=== PATIENT | male | born 1970 | race Caucasian/White ===

== ENCOUNTER 2019-12-23 16:38 | Observation (INO) ==
[2019-12-23 17:23] LABS: Basophils # (auto) 0.03 K/uL (0-0.2); Basophils % (auto) 0.6 %; Eosinophils # (auto) 0.11 K/uL (0-0.5); Eosinophils % (auto) 2.1 %; Hematocrit (blood only) 42.7 % (42-52); Hemoglobin 14.7 g/dL (14.0-18.0); Immature Granulocytes # (auto) 0.01 K/uL (0.00-0.02); Immature Granulocytes % (auto) 0.2 %; Lymphocytes # (auto) 1.84 K/uL (1.2-3.4); Lymphocytes % (auto) 35.3 %; Mean Corpuscular Hemoglobin 30.2 pg (25-34); Mean Corpuscular Hgb Conc 34.4 g/dL (32-36); Mean Corpuscular Volume 87.7 fL (80-100); Mean Platelet Volume 9.8 fL (7.4-10.4); Monocytes # (auto) 0.63 K/uL (0.11-0.59); Monocytes % (auto) 12.1 %; Neutrophils # (auto) 2.59 K/uL (1.4-6.5); Neutrophils % (auto) 49.7 %; Platelet Count 284 K/uL (130-400); RDW Coefficient of Variation 12.2 % (11.5-14.5); RDW Standard Deviation 38.8 fL (36.4-46.3); Red Blood Count 4.87 M/uL (4.7-6.1); White Blood Count 5.21 K/uL (4.8-10.8)
[2019-12-23] MEDS ORDERED: ASPIRIN CHEW 324 MG PO STA (17:24)
[2019-12-23 17:33] LABS: Partial Thromboplastin Ratio 1.1; Partial Thromboplastin Time 29.3 Seconds (21.0-31.0); Prothrombin Time 10.8 Seconds (9.0-12.0)
[2019-12-23 17:39] LABS: Alanine Aminotransferase 39 U/L (12-78); Albumin Level 4.2 gm/dl (3.4-5.0); Aspartate Aminotransferase 20 U/L (15-37); Blood Urea Nitrogen 14 mg/dl (7-18); Calcium 8.9 mg/dl (8.5-10.1); Carbon Dioxide 32 mmol/L (21-32); Chloride 103 mmol/L (98-107); Creatinine Clr Calc Pharmacy 72.3 ml/min; Est GFR (African American) 86.7; Est GFR (Non-African American) 74.8; Glucose 130 mg/dl (70-99); Lipase 346 U/L (73-393); Potassium 3.2 mmol/L (3.5-5.1); Sodium 140 mmol/L (136-145)
[2019-12-23 17:44] LABS: Albumin Globulin Ratio 1.2 (0.9-2); Alkaline Phosphatase 82 U/L (45-117); Bilirubin,Total 0.3 mg/dl (0.2-1); Globulin 3.4 gm/dl (2.5-4.0); Total Protein 7.6 gm/dl (6.4-8.2); Troponin I < 0.015 ng/ml (0-0.045)
[2019-12-23] MEDS ORDERED: NITROGLYCERIN SL 0.4 MG/TAB TAB ONE (17:47)
[2019-12-23] MEDS ORDERED: SODIUM CHLORIDE 0.9% 1000ML 1,000 ML IV ONE (17:48)
[2019-12-23] MEDS ORDERED: NITROGLYCERIN SL 0.4 MG/TAB TAB SL STA (17:48)
--- NOTE | 2019-12-23 17:51 | XRay Report ---
XR chest 1V portable CLINICAL HISTORY: Atypical chest pain COMPARISON STUDY: No previous studies for comparison. FINDINGS: The heart is the upper limits of normal in size. There is mild aortic tortuosity/ectasia. T here is no failure. There is no lobar consolidation. There are minimal increased basilar markings lik dariela atelectatic. No pleural effusions are visualized.[ IMPRESSION: Minor basilar opacities, likely atelectatic. No evidence of lobar consolidation. No evide nce of failure. ACT 112: Negative or not required by law. Electronically signed by: Delvis Sahu M.D. 12/23/2019 5:50 PM
[2019-12-23 18:22] LABS: D Dimer 210 ug/L FEU (0-500)
--- NOTE | 2019-12-23 19:04 | Emergency Department Note ---
History of Present Illness General Chief Complaint: Chest Pain Stated Complaint: CHEST PAIN Time Seen by Provider: 12/23/19 17:23 History of Present Illness Provider Complaint: chest pain Onset (ago): hour(s) 1 Duration: constant Onset: during rest Pain Location: substernal Pain Radiation: none Severity: moderate Maximum Pain Intensity: 8 Current Pain Intensity: 6 Quality: + heaviness Relieved By: + nothing Exacerbated By: + nothing Context: no recent illness, no recent surgery, no recent travel, no trauma/injury and no history of DVT/PE Associated symptoms: no nausea, no vomiting, no diaphoresis, no dyspnea, no syncope, no palpitations, no fever, no cough and no leg swelling Patient states he is scheduled to get an ultrasound of his gallbladder on Wednesday and is asking if we could complete that here in the emergency department today. Home Medications Home Medications Medication Instructions Recorded Confirmed Type hydrochlorothiazide 25 mg PO QAM 12/23/19 12/23/19 History levothyroxine 50 mcg PO QAM 12/23/19 12/23/19 History losartan 100 mg PO QAM 12/23/19 12/23/19 History multivitamin 1 tab PO QAM 12/23/19 12/23/19 History venlafaxine 75 mg PO PM 12/23/19 12/23/19 History Allergies Allergy/AdvReac Type Severity Reaction Status Date / Time No Known Allergies Allergy Unknown Unverified 12/23/19 18:31 Past Med/Surg History Medical History (Updated 12/23/19 @ 22:14 by Rl Chambers) Anxiety GERD (gastroesophageal reflux disease) HTN (hypertension) IBS (irritable bowel syndrome) Surgical History (Updated 12/23/19 @ 18:57 by Rl Chambers) No pertinent past surgical history Family History (Updated 12/23/19 @ 18:58 by Rl Chambers) Father Heart disease Hypertension Myocardial infarction Social History Smoking Status: Never smoker Tobacco Type: Cigarettes Second Hand Exposure: Yes; Do You Dip or Chew Tobacco: No; Tobacco Cessation Education Requested by Patient: No Hx Alcohol Use: No Hx Substance Use: Yes Last Used Substance: Hours (ago) Last Used Substance Other:: 12 hours Preferred Language: Maldivian Communication Ability: Effective [employer] Performance Professor Required: No Beliefs That Will Affect Care: None Current Living Situation: Significant Other Other Information That Helps Us Care for You: No Feels Safe at Home: Yes Assistive Devices: Glasses Review of Systems A total of 10 systems reviewed and were otherwise negative Physical Exam Vital Signs Vital Signs - 24 hr 12/23/19 16:50 12/23/19 16:53 12/23/19 17:10 Temperature 36.5 C Temperature Source Oral Pulse Rate 78 Pulse Rate [Apical] Pulse Rate from SpO2 Sensor Pulse Rhythm [Apical] Pulse Strength [Apical] Respiratory Rate 18 Respiratory Effort / Characteristics Non-Labored Spontaneous Non-Labored Spontaneous Respiratory Depth Normal Normal Respiratory Pattern Regular Blood Pressure 169/98 H Blood Pressure [Left Arm] Blood Pressure Mean 121 Blood Pressure Mean [Left Arm] Blood Pressure Position Sitting Blood Pressure Position [Left Arm] Pulse Oximetry 100 98 Oxygen Delivery Method Room Air Room Air Sepsis Recent Fever Within 48 Hours No Sepsis New/Unexplained Change in Mental Status N/A Sepsis Action Taken by Nursing No Action Required 12/23/19 17:25 12/23/19 17:27 12/23/19 17:30 Temperature Temperature Source Pulse Rate 74 72 76 Pulse Rate [Apical] 67 Pulse Rate from SpO2 Sensor 74 70 76 Pulse Rhythm [Apical] Regular Pulse Strength [Apical] Normal Respiratory Rate 15 20 22 Respiratory Effort / Characteristics Non-Labored Spontaneous Respiratory Depth Normal Respiratory Pattern Regular Blood Pressure 173/100 H 160/98 H Blood Pressure [Left Arm] 173/100 H Blood Pressure Mean 116 110 Blood Pressure Mean [Left Arm] 124 Blood Pressure Position Blood Pressure Position [Left Arm] Lying Pulse Oximetry 97 98 97 Oxygen Delivery Method Room Air Room Air Room Air Sepsis Recent Fever Within 48 Hours Sepsis New/Unexplained Change in Mental Status Sepsis Action Taken by Nursing 12/23/19 18:00 12/23/19 19:05 12/23/19 20:09 Temperature Temperature Source Pulse Rate 83 61 Pulse Rate [Apical] 70 Pulse Rate from SpO2 Sensor 83 Pulse Rhythm [Apical] Pulse Strength [Apical] Respiratory Rate 21 18 20 Respiratory Effort / Characteristics Respiratory Depth Respiratory Pattern Blood Pressure 135/91 142/87 H Blood Pressure [Left Arm] 143/87 H Blood Pressure Mean 106 106 Blood Pressure Mean [Left Arm] 105 Blood Pressure Position Blood Pressure Position [Left Arm] Pulse Oximetry 96 98 98 Oxygen Delivery Method Room Air Room Air Room Air Sepsis Recent Fever Within 48 Hours Sepsis New/Unexplained Change in Mental Status Sepsis Action Taken by Nursing Physical Exam GENERAL: He is oriented to person, place, and time. He appears well-developed and well-nourished. He does not appear distressed. HENT: Exam performed. - Head: Normocephalic and atraumatic. - Right Ear: External ear normal. No mastoid tenderness. - Left Ear: External ear normal. No mastoid tenderness. - Mouth/Throat: The oropharynx is clear and moist. No trismus in the jaw. No dental abscesses or uvula swelling. No oropharyngeal exudate or tonsillar abscesses. EYES: Conjunctivae and EOM are normal. Pupils are equal, round, and reactive to light. Right eye exhibits no discharge. Left eye exhibits no discharge. No scleral icterus. NECK: Normal range of motion. Neck supple. No JVD present. No spinous process tenderness present. No carotid bruit present. No rigidity. No tracheal deviation and normal range of motion present. No Brudzinski's sign and no Kernig's sign noted. CV: Normal rate, regular rhythm, normal heart sounds and intact distal pulses. There is no peripheral edema. Palpable radial pulses bue. PULM/CHEST: Effort normal and breath sounds normal. No respiratory distress. No stridor. He has no wheezes. He has no rales. - Chest Wall: He exhibits no tenderness. ABD: The abdomen is soft. Bowel sounds are normal. He has no distension. No mass is present. There is no tenderness. There is no rebound, no guarding, no Townsend's sign and no tenderness at McBurney's point. Rovsig negative. MUSC/SKEL: Normal range of motion. There is no peripheral edema, tenderness or deformity. LYMPH: No cervical adenopathy. NEURO: He is alert and oriented to person, place, and time. He has normal strength. No cranial nerve deficit or sensory deficit. Coordination and gait normal. GCS eye subscore is 4. GCS verbal subscore is 5. GCS motor subscore is 6. Cerebellar tests wnl. SKIN: Skin is warm and dry. He is not diaphoretic. PSYCH: He has a normal mood and affect. Behavior is normal. Judgment and thought content normal. Course Course 172: The patient was evaluated in room A10. A complete history and physical exam was performed. Cardiac monitoring: An order was placed for continuous cardiac monitoring. The monitor shows a rate of 70 with sinus rhythm 1802: Status post 1 sublingual nitro the patient's chest pain is improved to 3 out of 10. We will repeat his sublingual nitro. 1921: Vital signs stable. Labs within normal limits with exception of potassium 3.2 which will be replaced in the emergency department. Chest x-ray within normal limits. Patient reports his chest pain resolved after receiving the second sublingual nitro. Patient will be admitted to the hospitalist service for chest pain rule out ACS given his improvement of chest pain with sublingual nitro, his HPI, and a strong family history for heart disease. The patient will still have the ultrasound of his right upper quadrant that was scheduled to be done outpatient on Wednesday although it is thought that is very unlikely that the patient has any gallbladder disease as patient has no pain on palpation of the abdomen. Administered Medications Lactated Ringer's (Lr) 1,000 mls @ 60 mls/hr IV .[id number] VERA Stop: 01/22/20 21:07 Last Admin: 12/23/19 21:37 Dose: 60 mls/hr Documented by: [id number] Ioversol (Ioversol 100ml) 93 ml IV ONCE ONE Stop: 12/23/19 22:12 Last Admin: 12/23/19 22:11 Dose: 93 ml Documented by: [id number] Discontinued Medications Aspirin (Aspirin Chew 324 Mg) 324 mg PO NOW STA Stop: 12/23/19 17:25 Last Admin: 12/23/19 17:29 Dose: 324 mg Documented by: [id number] Sodium Chloride (Nss 1000ml) 1,000 mls @ 999 mls/hr IV .[id number] ONE Stop: 12/23/19 18:48 Last Infusion: 12/23/19 19:10 Dose: 0 mls/hr Documented by: [id number] Admin: 12/23/19 18:10 Dose: 999 mls/hr Documented by: [id number] Nitroglycerin (Nitroglycerin Sl 0.4 Mg/Tab Tab) Confirm Administered Dose 0.4 mg .ROUTE .STK-MED ONE Stop: 12/23/19 17:48 Last Admin: 12/23/19 17:51 Dose: Not Given Documented by: [id number] Nitroglycerin (Nitroglycerin Sl 0.4 Mg/Tab Tab) 0.4 mg SL NOW STA Stop: 12/23/19 17:49 Last Admin: 12/23/19 17:51 Dose: 0.4 mg Documented by: [id number] Potassium Chloride (Potassium Chloride 10 Meq Tabcr) 40 meq PO NOW STA Stop: 12/23/19 19:23 Last Admin: 12/23/19 20:14 Dose: 40 meq Documented by: [id number] Medical Decision Making Laboratory Data Result diagrams: 12/23/19 17:07 12/23/19 17:07 Labs: Lab Results 12/23/19 12/23/19 12/23/19 Range/Units 17:07 17:07 17:07 WBC 5.21 (4.8-10.8) K/uL RBC 4.87 (4.7-6.1) M/uL Hgb 14.7 (14.0-18.0) g/dL Hct 42.7 (42-52) % MCV 87.7 (80-100) fL MCH 30.2 (25-34) pg MCHC 34.4 (32-36) g/dL RDW Std Deviation 38.8 (36.4-46.3) fL RDW Coeff of Brennon 12.2 (11.5-14.5) % Plt Count 284 (130-400) K/uL MPV 9.8 (7.4-10.4) fL Immature Gran % (Auto) 0.2 % Neut % (Auto) 49.7 % Lymph % (Auto) 35.3 % [place] % (Auto) 12.1 % Eos % (Auto) 2.1 % Baso % (Auto) 0.6 % Neut # (Auto) 2.59 (1.4-6.5) K/uL Lymph # (Auto) 1.84 (1.2-3.4) K/uL [place] # (Auto) 0.63 H (0.11-0.59) K/uL Eos # (Auto) 0.11 (0-0.5) K/uL Baso # (Auto) 0.03 (0-0.2) K/uL Immature Gran # (Auto) 0.01 (0.00-0.02) K/uL PT 10.8 (9.0-12.0) Seconds INR 1.0 (0.9-1.1) APTT 29.3 (21.0-31.0) Seconds PTT Ratio 1.1 D-Dimer (0-500) ug/L FEU Sodium 140 (136-145) mmol/L Potassium 3.2 L (3.5-5.1) mmol/L Chloride 103 (98-107) mmol/L Carbon Dioxide 32 (21-32) mmol/L Anion Gap 5.0 (3-11) BUN 14 (7-18) mg/dl Creatinine 1.13 (0.6-1.4) mg/dl Est Cr Clr Drug Dosing 72.3 ml/min Est GFR ( Amer) 86.7 Est GFR (Non-Af Amer) 74.8 BUN/Creatinine Ratio 12.0 (10-20) Glucose 130 H (70-99) mg/dl Calcium 8.9 (8.5-10.1) mg/dl Magnesium 2.3 (1.8-2.4) mg/dl Total Bilirubin 0.3 (0.2-1) mg/dl AST 20 (15-37) U/L ALT 39 (12-78) U/L Alkaline Phosphatase 82 (45-117) U/L Troponin I < 0.015 (0-0.045) ng/ml Total Protein 7.6 (6.4-8.2) gm/dl Albumin 4.2 (3.4-5.0) gm/dl Globulin 3.4 (2.5-4.0) gm/dl Albumin/Globulin Ratio 1.2 (0.9-2) Lipase 346 (73-393) U/L 12/23/19 Range/Units 17:07 WBC (4.8-10.8) K/uL RBC (4.7-6.1) M/uL Hgb (14.0-18.0) g/dL Hct (42-52) % MCV (80-100) fL MCH (25-34) pg MCHC (32-36) g/dL RDW Std Deviation (36.4-46.3) fL RDW Coeff of Brennon (11.5-14.5) % Plt Count (130-400) K/uL MPV (7.4-10.4) fL Immature Gran % (Auto) % Neut % (Auto) % Lymph % (Auto) % [place] % (Auto) % Eos % (Auto) % Baso % (Auto) % Neut # (Auto) (1.4-6.5) K/uL Lymph # (Auto) (1.2-3.4) K/uL [place] # (Auto) (0.11-0.59) K/uL Eos # (Auto) (0-0.5) K/uL Baso # (Auto) (0-0.2) K/uL Immature Gran # (Auto) (0.00-0.02) K/uL PT (9.0-12.0) Seconds INR (0.9-1.1) APTT (21.0-31.0) Seconds PTT Ratio D-Dimer 210 (0-500) ug/L FEU Sodium (136-145) mmol/L Potassium (3.5-5.1) mmol/L Chloride (98-107) mmol/L Carbon Dioxide (21-32) mmol/L Anion Gap (3-11) BUN (7-18) mg/dl Creatinine (0.6-1.4) mg/dl Est Cr Clr Drug Dosing ml/min Est GFR ( Amer) Est GFR (Non-Af Amer) BUN/Creatinine Ratio (10-20) Glucose (70-99) mg/dl Calcium (8.5-10.1) mg/dl Magnesium (1.8-2.4) mg/dl Total Bilirubin (0.2-1) mg/dl AST (15-37) U/L ALT (12-78) U/L Alkaline Phosphatase (45-117) U/L Troponin I (0-0.045) ng/ml Total Protein (6.4-8.2) gm/dl Albumin (3.4-5.0) gm/dl Globulin (2.5-4.0) gm/dl Albumin/Globulin Ratio (0.9-2) Lipase (73-393) U/L Imaging Data Chest x-ray: Radiologist's impression: XR chest 1V portable CLINICAL HISTORY: Atypical chest pain COMPARISON STUDY: No previous studies for comparison. FINDINGS: The heart is the upper limits of normal in size. There is mild aortic tortuosity/ectasia. There is no failure. There is no lobar consolidation. There are minimal increased basilar markings likely atelectatic. No pleural effusions are visualized.[ IMPRESSION: Minor basilar opacities, likely atelectatic. No evidence of lobar consolidation. No evidence of failure. ACT 112: Negative or not required by law. Electronically signed by: Delvis Sahu M.D. 12/23/2019 5:50 PM Dictated: 12/23/[id number] Transcribed: 12/23/[id number] US - abdomen: Radiologist's impression: BILIARY ULTRASOUND CLINICAL HISTORY: Right upper quadrant abdominal pain COMPARISON STUDY: CT scan performed September 2008 FINDINGS: Pancreas appears sonographically normal. The liver appears sonographically normal. The gallbladder appears sonographically normal. There is no ductal dilatation. The common bile duct measures 3 mm. There is no right-sided hydronephrosis. IMPRESSION: Normal biliary ultrasound. ACT 112: Negative or not required by law. Electronically signed by: Delvis Sahu M.D. 12/23/2019 7:57 PM Dictated: 12/23/[id number]: 12/23/191955 ECG Data Indication: chest pain Rate (beats per minute): 69 Rhythm: normal sinus Findings: + T-wave inversion (Leads II, III and aVF); no ST depression and no ST elevation Additional Comments: ND QRS and QTc intervals are within normal limits. Left ventricular hypertrophy present. [facility] Narrative 1723: The patient was evaluated in room A10. A complete history and physical exam was performed. Cardiac monitoring: An order was placed for continuous cardiac monitoring. The monitor shows a rate of 70 with sinus rhythm 1802: Status post 1 sublingual nitro the patient's chest pain is improved to 3 out of 10. We will repeat his sublingual nitro. 1921: Vital signs stable. Labs within normal limits with exception of potassium 3.2 which will be replaced in the emergency department. Chest x-ray within normal limits. Patient reports his chest pain resolved after receiving the second sublingual nitro. Patient will be admitted to the hospitalist service for chest pain rule out ACS given his improvement of chest pain with sublingual nitro, his HPI, and a strong family history for heart disease. The patient will still have the ultrasound of his right upper quadrant that was scheduled to be done outpatient on Wednesday although it is thought that is very unlikely that the patient has any gallbladder disease as patient has no pain on palpation of the abdomen. Impression & Plan Chest pain Discharge Plan Visit Data Chief Complaint: Chest Pain Stated Complaint: CHEST PAIN ED Provider: Rl Chambers Discharge Problem: Chest pain Patient Disposition: Admitted As Inpatient Discharge Instructions Interventions: ED Discharge Assessment Last Done: 12/23/19 20:44 Discharge Problem: Chest pain Qualifiers: Chest pain type: unspecified Qualified Code(s): R07.9 - Chest pain, unspecified
[2019-12-23] MEDS ORDERED: POTASSIUM CHLORIDE 10 MEQ TABCR PO STA (19:22)
[2019-12-23 19:56] LABS: Magnesium 2.3 mg/dl (1.8-2.4)
--- NOTE | 2019-12-23 19:59 | Ultrasound Report ---
BILIARY ULTRASOUND CLINICAL HISTORY: Right upper quadrant abdominal pain COMPARISON STUDY: CT scan performed September 2008 FINDINGS: Pancreas appears sonographically normal. The liver appears sonographically normal. The gallbladder appears sonographically normal. There is no ductal dilatation. The common bile duct measures 3 mm. There is no right-sided hydronephrosis. IMPRESSION: Normal biliary ultrasound. ACT 112: Negative or not required by law. Electronically signed by: Delvis Sahu M.D. 12/23/2019 7:57 PM
--- NOTE | 2019-12-23 20:13 | History & Physical Report ---
Date of Service December 23, 2019 Assessment & Plan (1) Chest pain: Possibly from uncontrolled blood pressure from IBS/anxiety symptoms Rule out ACS hypothyroidism, euthyroid as of today's TSH Hypokalemia secondary diuretic Rx Hyperglycemia rule out DM OBS PCU Monitor blood pressure on current losartan, HCTZ regimen. Add Norvasc if still uncontrolled Follow troponin TTE, Cardiology consult RE chest pain Aspirin for CAD prevention until ACS ruled out. Consider inpatient GI consultation if IBS symptoms still bothersome. Replace potassium Check hemoglobin A1c DVT prophylaxis per Lovenox subcu Full code. Text document was generated using AKT voice recognition software. It may contain grammatical or spelling errors. Kindly contact undersigned for clarification of any documentation item in question. History of Present Illness Chief Complaint: Chest pain+ Primary Care Provider: Kiran Duarte MD History obtained from patient and records. Medical history significant for hypertension, hypothyroidism, anxiety disorder, IBS as per records. 3 weeks history of bloating symptoms, right upper quadrant discomfort with loose stools similar to previous IBS episodes as per patient account. Patient seen at PCPs office. Blood pressure noted to be 140s. Home diuretic increase in dose. Abdominal pain, loose stools attributed to possible IBS. Bentyl as needed prescribed. Patient verbalized wanting to look into medical marijuana. Persistent GI symptoms despite discomfort. No fever, no chills. Outpatient right upper quadrant ultrasound recommended to rule out gallbladder disease. Consideration for GI consult if without improvement. Patient was playing video games this afternoon when he experienced substernal heaviness without radiation without other associated symptoms. Patient having separate right upper quadrant discomfort at time of chest heaviness. Chest heaviness relieved with nitroglycerin administration at the ER. Some headache post nitro administration. Medical History as above 2016 colonoscopy showed hyperplastic polyps Surgical History : Tonsillectomy, hernia repair Family History : Diabetes, heart disease, stomach cancer, colon cancer Personal/Social history : Non-smoker, occasional EtOH intake, paint salesman Allergies Allergy/AdvReac Type Severity Reaction Status Date / Time No Known Allergies Allergy Unknown Unverified 12/23/19 18:31 Home Medications Home Medications Medication Instructions Recorded Confirmed Type hydrochlorothiazide 25 mg PO QAM 12/23/19 12/23/19 History levothyroxine 50 mcg PO QAM 12/23/19 12/23/19 History losartan 100 mg PO QAM 12/23/19 12/23/19 History multivitamin 1 tab PO QAM 12/23/19 12/23/19 History venlafaxine 75 mg PO PM 12/23/19 12/23/19 History aspirin 81 mg PO QAM #30 tab 12/24/19 Rx carvedilol 6.25 mg PO BID #60 tab 12/24/19 Rx dicyclomine 20 mg PO QID PRN #20 tab 12/24/19 Rx potassium chloride 40 meq PO DAILY #60 tab 12/24/19 Rx Past Med/Surg History Medical History Anxiety GERD (gastroesophageal reflux disease) HTN (hypertension) IBS (irritable bowel syndrome) Surgical History No pertinent past surgical history Family History Father Heart disease Hypertension Myocardial infarction Social History Smoking Status: Never smoker Tobacco Type: Cigarettes Second Hand Exposure: Yes; Do You Dip or Chew Tobacco: No; Tobacco Cessation Education Requested by Patient: No Hx Alcohol Use: No Hx Substance Use: Yes Last Used Substance: Hours (ago) Last Used Substance Other:: 12 hours Preferred Language: Albanian Communication Ability: Effective 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 Beliefs That Will Affect Care: None Current Living Situation: Significant Other Other Information That Helps Us Care for You: No Feels Safe at Home: Yes Assistive Devices: None Review of Systems Review of Systems: As per HPI, all 10 systems reviewed, all other ROS negative Physical Exam Physical Exam: GENERAL: Pleasant, slightly anxious, no respiratory distress SKIN: Normal color, warm HEENT: Alopecia, pink palpebral conjunctivae, no ptosis, dry buccal mucosa NECK : Supple, no tenderness CHEST : CTA, no tenderness HEART : RRR, no obvious murmurs ABDOMEN: Some distention, nontender EXTREMITIES : No LE swelling/tenderness, no other conspicuous deformities noted NEUROLOGIC : Coherent, no facial asymmetry, no other gross focality Results & Data Results & Data ([facility]) Vital Signs (Past 12 Hours) Vital Signs Temp Pulse Pulse Resp BP BP Pulse Ox 12/23/19 19:05 70 18 143/87 H 98 12/23/19 18:00 83 21 135/91 96 12/23/19 17:30 76 22 160/98 H 97 12/23/19 17:27 72 20 98 12/23/19 17:25 74 67 15 173/100 H 173/100 H 97 12/23/19 17:10 98 12/23/19 16:50 36.5 C 78 18 169/98 H 100 Laboratory Results Laboratory Results WBC 5.21 K/uL (4.8-10.8) 12/23/19 17:07 RBC 4.87 M/uL (4.7-6.1) 12/23/19 17:07 Hgb 14.7 g/dL (14.0-18.0) 12/23/19 17:07 Hct 42.7 % (42-52) 12/23/19 17:07 MCV 87.7 fL (80-100) 12/23/19 17:07 MCH 30.2 pg (25-34) 12/23/19 17:07 MCHC 34.4 g/dL (32-36) 12/23/19 17:07 RDW Std Deviation 38.8 fL (36.4-46.3) 12/23/19 17:07 RDW Coeff of Brennon 12.2 % (11.5-14.5) 12/23/19 17:07 Plt Count 284 K/uL (130-400) 12/23/19 17:07 MPV 9.8 fL (7.4-10.4) 12/23/19 17:07 Immature Gran % (Auto) 0.2 % 12/23/19 17:07 Neut % (Auto) 49.7 % 12/23/19 17:07 Lymph % (Auto) 35.3 % 12/23/19 17:07 [place] % (Auto) 12.1 % 12/23/19 17:07 Eos % (Auto) 2.1 % 12/23/19 17:07 Baso % (Auto) 0.6 % 12/23/19 17:07 Neut # (Auto) 2.59 K/uL (1.4-6.5) 12/23/19 17:07 Lymph # (Auto) 1.84 K/uL (1.2-3.4) 12/23/19 17:07 [place] # (Auto) 0.63 K/uL (0.11-0.59) H 12/23/19 17:07 Eos # (Auto) 0.11 K/uL (0-0.5) 12/23/19 17:07 Baso # (Auto) 0.03 K/uL (0-0.2) 12/23/19 17:07 Immature Gran # (Auto) 0.01 K/uL (0.00-0.02) 12/23/19 17:07 PT 10.8 Seconds (9.0-12.0) 12/23/19 17:07 INR 1.0 (0.9-1.1) 12/23/19 17:07 APTT 29.3 Seconds (21.0-31.0) 12/23/19 17:07 PTT Ratio 1.1 12/23/19 17:07 D-Dimer 210 ug/L FEU (0-500) 12/23/19 17:07 Sodium 140 mmol/L (136-145) 12/23/19 17:07 Potassium 3.2 mmol/L (3.5-5.1) L 12/23/19 17:07 Chloride 103 mmol/L (98-107) 12/23/19 17:07 Carbon Dioxide 32 mmol/L (21-32) 12/23/19 17:07 Anion Gap 5.0 (3-11) 12/23/19 17:07 BUN 14 mg/dl (7-18) 12/23/19 17:07 Creatinine 1.13 mg/dl (0.6-1.4) 12/23/19 17:07 Est Cr Clr Drug Dosing 72.3 ml/min 12/23/19 17:07 Est GFR ( Amer) 86.7 12/23/19 17:07 Est GFR (Non-Af Amer) 74.8 12/23/19 17:07 BUN/Creatinine Ratio 12.0 (10-20) 12/23/19 17:07 Glucose 130 mg/dl (70-99) H 12/23/19 17:07 Calcium 8.9 mg/dl (8.5-10.1) 12/23/19 17:07 Magnesium 2.3 mg/dl (1.8-2.4) 12/23/19 17:07 Total Bilirubin 0.3 mg/dl (0.2-1) 12/23/19 17:07 AST 20 U/L (15-37) 12/23/19 17:07 ALT 39 U/L (12-78) 12/23/19 17:07 Alkaline Phosphatase 82 U/L (45-117) 12/23/19 17:07 Troponin I < 0.015 ng/ml (0-0.045) 12/23/19 17:07 Total Protein 7.6 gm/dl (6.4-8.2) 12/23/19 17:07 Albumin 4.2 gm/dl (3.4-5.0) 12/23/19 17:07 Globulin 3.4 gm/dl (2.5-4.0) 12/23/19 17:07 Albumin/Globulin Ratio 1.2 (0.9-2) 12/23/19 17:07 Lipase 346 U/L (73-393) 12/23/19 17:07 Diagnostic Findings Chest x-ray : Minor basilar opacities, likely atelectatic. No evidence of lobar consolidation. No evidence of failure. Gallbladder ultrasound: Normal biliary ultrasound. CT abdomen pelvis : 1. No evidence of bowel obstruction. No evidence of free air 2. Normal appendix 3. No evidence of acute diverticulitis 4. Bladder wall thickening, a finding which may be secondary to a nondistended bladder. EKG as per my interpretation :Rate 70, NSR, normal axis, LVH, T wave abnormalities inversion in inferior leads (1) Chest pain Chest pain type: unspecified Qualified Code(s): R07.9 - Chest pain, unspecified
[2019-12-23] MEDS ORDERED: traMADol HCL 50 MG TABLET PO PRN (21:08)
[2019-12-23] MEDS ORDERED: PROMETHAZINE HCL 12.5 MG in SODIUM CHLORIDE 0.9% 50 ML IV PRN (21:08)
[2019-12-23] MEDS ORDERED: MoRPHine SULFATE 4 MG/ML 1 ML CARP\\VIAL IV PRN (21:08)
[2019-12-23] MEDS ORDERED: LACTATED RINGER'S 1,000 ML IV SCH (21:08)
[2019-12-23] MEDS ORDERED: LORazepam 0.5 MG/1 ML VIAL IV PRN (21:08)
[2019-12-23] MEDS ORDERED: NITROGLYCERIN SL 0.4 MG/TAB TAB SL PRN (21:08)
[2019-12-23] MEDS ORDERED: ACETAMINOPHEN 325 MG TAB PO PRN (21:08)
[2019-12-23] MEDS ORDERED: VENLAFAXINE HCL XR 75 MG CAPXR PO SCH (22:00)
[2019-12-23] MEDS ORDERED: IOVERSOL 100ml IV ONE (22:11)
[2019-12-23] MEDS ORDERED: LACTATED RINGER'S 1,000 ML IV ONE (23:56)
[2019-12-24] MEDS ORDERED: LEVOTHYROXINE SODIUM 50 MCG TABLET PO SCH (06:30)
[2019-12-24 07:06] LABS: Basophils # (auto) 0.03 K/uL (0-0.2); Basophils % (auto) 0.5 %; Eosinophils % (auto) 1.7 %; Hematocrit (blood only) 39.2 % (42-52); Hemoglobin 13.4 g/dL (14.0-18.0); Lymphocytes # (auto) 1.86 K/uL (1.2-3.4); Lymphocytes % (auto) 30.8 %; Mean Corpuscular Hgb Conc 34.2 g/dL (32-36); Mean Corpuscular Volume 87.9 fL (80-100); Mean Platelet Volume 9.5 fL (7.4-10.4); Monocytes # (auto) 0.63 K/uL (0.11-0.59); Monocytes % (auto) 10.4 %; Neutrophils # (auto) 3.41 K/uL (1.4-6.5); Neutrophils % (auto) 56.6 %; Platelet Count 261 K/uL (130-400); RDW Coefficient of Variation 12.3 % (11.5-14.5); RDW Standard Deviation 39.5 fL (36.4-46.3); Red Blood Count 4.46 M/uL (4.7-6.1); White Blood Count 6.03 K/uL (4.8-10.8)
[2019-12-24 07:33] LABS: BUN Creatinine Ratio 11.7 (10-20); Blood Urea Nitrogen 11 mg/dl (7-18); Calcium 8.1 mg/dl (8.5-10.1); Carbon Dioxide 30 mmol/L (21-32); Chloride 108 mmol/L (98-107); Creatinine Clr Calc Pharmacy 98.4 ml/min; Est GFR (African American) 114.2; Est GFR (Non-African American) 98.5; Glucose 95 mg/dl (70-99); Potassium 3.2 mmol/L (3.5-5.1); Sodium 141 mmol/L (136-145)
[2019-12-24 07:37] LABS: Troponin I < 0.015 ng/ml (0-0.045)
--- NOTE | 2019-12-24 07:41 | CT Scan Report ---
CT abd pelvis IV con only CLINICAL HISTORY: abd pain, diarrhea COMPARISON STUDY: September 2008 TECHNIQUE: The patient was scanned in a dynamic helical fashion during intravenous administration of 93 cc of Optiray 320. A dose lowering technique was utilized adhering to the principles of ALARA. CT DOSE: 416.05 mGy.cm FINDINGS: Lower chest: There are mild dependent atelectatic changes. Liver: There is a 1 cm left lobe hypodensity, likely representing a cyst. Gallbladder: Unremarkable. Spleen: Normal in size and attenuation. Pancreas: Unremarkable. Adrenal glands: Unremarkable. Kidneys: There is symmetric renal cortical enhancement. The kidneys are normal in size without hydron ephrosis. Bowel: There are no transition zones indicate bowel obstruction. There is no evidence of acute divert iculitis. The appendix appears normal. Peritoneum: There is no intraperitoneal free air or abdominal ascites. Vasculature: The abdominal aorta is normal in course and caliber. Adenopathy: None. Pelvic viscera: There is mild bladder wall thickening which may be secondary to nondistention. Skeletal structures: No destructive osseous lesions are seen. IMPRESSION: 1. No evidence of bowel obstruction. No evidence of free air 2. Normal appendix 3. No evidence of acute diverticulitis 4. Bladder wall thickening, a finding which may be secondary to a nondistended bladder. ACT 112: Negative or not required by law. Electronically signed by: Delvis Sahu M.D. 12/24/2019 7:40 AM
[2019-12-24] MEDS ORDERED: POTASSIUM CHLORIDE 20 MEQ TABCR PO STA (08:18)
--- NOTE | 2019-12-24 08:58 | Cardiology Consultation ---
Date of Consultation December 24, 2019 Assessment & Plan (1) Chest pain: (2) HTN (hypertension): (3) Anxiety: The patient has had negative cardiac markers and an EKG that shows evidence of hypertensive heart disease and no ACS. If his echocardiogram is unremarkable without regional wall motion abnormalities that would suggest ischemic heart disease, then I believe he can be discharged home to outpatient follow-up. Going to add carvedilol 6.25 mg twice daily to his current medical regimen as he remains hypertensive. If discharged, I will arrange for an outpatient exercise stress test. History of Present Illness Attending Physician: Ronald Martínez MD History of Present Illness This is a 49-year-old male patient with no prior history of heart disease. Recently he was started on blood pressure medications which were increased recently as well. He started to not feel well and had some abdominal discomfort and eventually upper chest pain. He was brought to the emergency department where he was given a sublingual nitroglycerin with some improvement. He was also found to be markedly hypertensive. The patient has had negative cardiac markers. His EKG shows left ventricular hypertrophy but no evidence of acute coronary syndrome. He is currently comfortable. He is a nondiabetic with no prior history of smoking. No history of hypercholesterolemia. Allergies Allergy/AdvReac Type Severity Reaction Status Date / Time No Known Allergies Allergy Unknown Unverified 12/23/19 18:31 Home Medications Home Medications Medication Instructions Recorded Confirmed Type hydrochlorothiazide 25 mg PO QAM 12/23/19 12/23/19 History levothyroxine 50 mcg PO QAM 12/23/19 12/23/19 History losartan 100 mg PO QAM 12/23/19 12/23/19 History multivitamin 1 tab PO QAM 12/23/19 12/23/19 History venlafaxine 75 mg PO PM 12/23/19 12/23/19 History Patient History Medical History Anxiety GERD (gastroesophageal reflux disease) HTN (hypertension) IBS (irritable bowel syndrome) Surgical History No pertinent past surgical history Family History Father Heart disease Hypertension Myocardial infarction Social History Smoking Status: Never smoker Tobacco Type: Cigarettes Second Hand Exposure: Yes; Do You Dip or Chew Tobacco: No; Tobacco Cessation Education Requested by Patient: No Hx Alcohol Use: No Hx Substance Use: Yes Last Used Substance: Hours (ago) Last Used Substance Other:: 12 hours Preferred Language: Nepali Communication Ability: Effective [employer] 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 Physical Exam Physical Exam: General: no acute distress and stated age Head: normocephalic, no masses, lesions, tenderness or abnormalities Eyes: conjunctiva are pink and non-injected, sclera clear Neck: supple, no adenopathy, no bruits, normal jugular venous pulse, no hepatojugular reflux Chest: normal shape and normal respiratory effort Lungs: clear to auscultation and percussion Cardiac Exam: - regular rate & rhythm, no murmurs gallops or rubs - normal S1, normal S2 Pulses: 2(+) throughout Abdomen: abdomen soft, non-tender, no abnormal masses and no hepatosplenomegaly Musculoskeletal: no gait disturbance, no joint inflammation, no deforming arthritis Extremities: no edema and no cyanosis Neuro: grossly normal exam Results & Data ([facility]) Vital Signs (Past 12 Hours) Vital Signs Temp Pulse Pulse Resp BP Pulse Ox 12/24/19 07:49 36.5 C 60 19 165/98 H 98 12/24/19 03:49 36.5 C 61 17 142/86 H 96 12/23/19 23:18 36.8 C 68 17 128/80 97 12/23/19 21:13 36.7 C 63 20 138/90 97 12/23/19 21:05 70 Laboratory Results Laboratory Results - last 24 hr 12/23/19 12/23/19 12/23/19 17:07 17:07 17:07 WBC 5.21 RBC 4.87 Hgb 14.7 Hct 42.7 MCV 87.7 MCH 30.2 MCHC 34.4 RDW Std Deviation 38.8 RDW Coeff of Brennon 12.2 Plt Count 284 MPV 9.8 Immature Gran % (Auto) 0.2 Neut % (Auto) 49.7 Lymph % (Auto) 35.3 [place] % (Auto) 12.1 Eos % (Auto) 2.1 Baso % (Auto) 0.6 Neut # (Auto) 2.59 Lymph # (Auto) 1.84 [place]ent # (Auto) 0.63 H Eos # (Auto) 0.11 Baso # (Auto) 0.03 Immature Gran # (Auto) 0.01 PT 10.8 INR 1.0 APTT 29.3 PTT Ratio 1.1 D-Dimer Sodium 140 Potassium 3.2 L Chloride 103 Carbon Dioxide 32 Anion Gap 5.0 BUN 14 Creatinine 1.13 Est Cr Clr Drug Dosing 72.3 Est GFR ( Amer) 86.7 Est GFR (Non-Af Amer) 74.8 BUN/Creatinine Ratio 12.0 Glucose 130 H Estimat Average Glucose Hemoglobin A1c Calcium 8.9 Magnesium 2.3 Total Bilirubin 0.3 AST 20 ALT 39 Alkaline Phosphatase 82 Troponin I < 0.015 Total Protein 7.6 Albumin 4.2 Globulin 3.4 Albumin/Globulin Ratio 1.2 Lipase 346 12/23/19 12/23/19 12/23/19 17:07 17:07 22:55 WBC RBC Hgb Hct MCV MCH MCHC RDW Std Deviation RDW Coeff of Brennon Plt Count MPV Immature Gran % (Auto) Neut % (Auto) Lymph % (Auto) [place] % (Auto) Eos % (Auto) Baso % (Auto) Neut # (Auto) Lymph # (Auto) [place] # (Auto) Eos # (Auto) Baso # (Auto) Immature Gran # (Auto) PT INR APTT PTT Ratio D-Dimer 210 Sodium Potassium Chloride Carbon Dioxide Anion Gap BUN Creatinine Est Cr Clr Drug Dosing Est GFR ( Amer) Est GFR (Non-Af Amer) BUN/Creatinine Ratio Glucose Estimat Average Glucose Pending Hemoglobin A1c Pending Calcium Magnesium Total Bilirubin AST ALT Alkaline Phosphatase Troponin I < 0.015 Total Protein Albumin Globulin Albumin/Globulin Ratio Lipase 12/24/19 12/24/19 06:50 06:50 WBC 6.03 RBC 4.46 L Hgb 13.4 L Hct 39.2 L MCV 87.9 MCH 30.0 MCHC 34.2 RDW Std Deviation 39.5 RDW Coeff of Brennon 12.3 Plt Count 261 MPV 9.5 Immature Gran % (Auto) 0.0 Neut % (Auto) 56.6 Lymph % (Auto) 30.8 [place]ent % (Auto) 10.4 Eos % (Auto) 1.7 Baso % (Auto) 0.5 Neut # (Auto) 3.41 Lymph # (Auto) 1.86 S[place]ent # (Auto) 0.63 H Eos # (Auto) 0.10 Baso # (Auto) 0.03 Immature Gran # (Auto) 0.00 PT INR APTT PTT Ratio D-Dimer Sodium 141 Potassium 3.2 L Chloride 108 H Carbon Dioxide 30 Anion Gap 3.0 BUN 11 Creatinine 0.90 Est Cr Clr Drug Dosing 98.4 Est GFR ( Amer) 114.2 Est GFR (Non-Af Amer) 98.5 BUN/Creatinine Ratio 11.7 Glucose 95 Estimat Average Glucose Hemoglobin A1c Calcium 8.1 L Magnesium Total Bilirubin AST ALT Alkaline Phosphatase Troponin I < 0.015 Total Protein Albumin Globulin Albumin/Globulin Ratio Lipase Medications Administered Current Inpatient Medications Acetaminophen (Acetaminophen 325 Mg Tab) 650 mg PO Q4H PRN PRN Reason: Pain or Fever Stop: 01/22/20 21:07 Aspirin (Aspirin 81 Mg Ectab) 81 mg PO [facility] Stop: 01/23/20 08:59 Last Admin: 12/24/19 08:36 Dose: 81 mg Documented by: Enoxaparin Sodium (Enoxaparin Inj 40 Mg/0.4 Ml Syr) 40 mg SQ [facility] Stop: 01/23/20 08:59 Last Admin: 12/24/19 08:37 Dose: 40 mg Documented by: Hydrochlorothiazide (Hydrochlorothiazide 25 Mg Tab) 25 mg PO [facility] Stop: 01/23/20 08:59 Last Admin: 12/24/19 08:36 Dose: 25 mg Documented by: Promethazine HCl 12.5 mg/ (Sodium Chloride) 50.5 mls @ 202 mls/hr IV Q6H PRN PRN Reason: Nausea And Vomiting Stop: 01/22/20 21:07 Lorazepam (Ativan) 0.5 mg in 1 mls @ 1 mls/min IV Q4H PRN PRN Reason: Anxiety/Agitation Stop: 01/22/20 21:07 Lactated Ringer's (Lr) 1,000 mls @ 60 mls/hr IV .[id number] ONE Stop: 12/24/19 16:35 Last Admin: 12/24/19 00:37 Dose: 60 mls/hr Documented by: Levothyroxine Sodium (Levothyroxine Sodium 50 Mcg Tablet) 50 mcg PO DAILYBB [facility] Stop: 01/23/20 06:29 Last Admin: 12/24/19 06:06 Dose: 50 mcg Documented by: Losartan Potassium (Losartan Potassium 50 Mg Tab) 100 mg PO QAM [facility] Stop: 01/23/20 08:59 Last Admin: 12/24/19 08:36 Dose: 100 mg Documented by: Morphine Sulfate (Morphine Sulfate 4 Mg/Ml 1 Ml Carp\Vial) 4 mg IV Q4H PRN PRN Reason: Pain Stop: 01/06/20 21:07 Multivitamins ([facility]itamin Tab) [facility] [place]: 01/23/20 08:59 Last Admin: 12/24/19 08:37 Dose: 1 tab Documented by: Nitroglycerin (Nitroglycerin Sl 0.4 Mg/Tab Tab) 0.4 mg SL UD PRN PRN Reason: Chest Pain Stop: 01/22/20 21:07 Tramadol HCl (Tramadol Hcl 50 Mg Tablet) 25 - 50 mg PO Q4H PRN PRN Reason: Pain Stop: 01/22/20 21:07 Venlafaxine HCl (Venlafaxine Hcl Xr 75 Mg Capxr) 75 mg PO PM [facility] Stop: 01/22/20 21:59 Last Admin: 12/23/19 22:25 Dose: 75 mg Documented by: (1) Chest pain Chest pain type: unspecified Qualified Code(s): R07.9 - Chest pain, unspecified
[2019-12-24] MEDS ORDERED: LOSARTAN POTASSIUM 50 MG TAB PO SCH (09:00)
[2019-12-24] MEDS ORDERED: MULTIVITAMIN TAB PO SCH (09:00)
[2019-12-24] MEDS ORDERED: hydroCHLOROthiazide 25 MG TAB PO SCH (09:00)
[2019-12-24] MEDS ORDERED: ENOXAPARIN INJ 40 MG/0.4 ML SYR SQ SCH (09:00)
[2019-12-24] MEDS ORDERED: ASPIRIN 81 MG ECTAB PO SCH (09:00)
[2019-12-24] MEDS ORDERED: carvediloL 6.25 MG TAB PO SCH (09:15)
[2019-12-24] MEDS ORDERED: DICYCLOMINE HCL 10 MG CAP PO PRN (11:05)
[2019-12-24] MEDS ORDERED: DICYCLOMINE HCL 20 MG TAB PO PRN (11:13)
--- NOTE | 2019-12-24 13:22 | Hospitalist Progress Note ---
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 twice daily added for blood pressure control Aspirin 81 mg p.o. 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 hypothyroidism, euthyroid Hypokalemia secondary diuretic Rx Add potassium 40 M EQ's daily Check potassium level during follow-up visit with PCP Hyperglycemia A1c pending Please follow-up Disposition Discharge home today Follow-up with PCP next week Outpatient stress test Admission and Anticipated Discharge Date Admission Date: December 23, 2019 Subjective ff up for chest pain, r/o ACS seen resting in bed, comfortable not in distress chest pain free no dyspnea, palpitations has mild dizziness when standing, no focal neurologic deficit mild R abdominal discomfort (+) constipation and diarrhea- at home constipation for the past 2 days no melena/hematochezia denies other symptoms Review of Systems Review of Systems: All systems reviewed & are unremarkable except as noted in Subjective Physical Exam Physical Exam: General- oriented x 3, not in distress, speaks in sentences with no effort or accessory muscle use Head- atraumatic Eyes- PERRL, EOMI, anicteric ENT- oropharynx clear Neck- supple, no JVD, no adenopathy, no thyromegaly; carotids +2/2, no bruits appreciated Lungs- clear to auscultation bilaterally, no rales/wheezes Heart- normal rate, regular rhythm; no murmur, no gallop, no rub appreciated Abdomen- normal bowel sounds, nondistended, soft, MILD right sided tenderness, no masses or hepatosplenomegaly Extremities- no pretibial edema, no calf tenderness; peripheral pulses intact Neuro- alert, oriented x 3; CN 2-12 grossly intact; motor 5/5 bilaterally;sensation 100% on all extremities; no other gross focal neurologic deficits Skin- warm & dry Results & Data Results & Data ([facility]) Vital Signs (Past 12 Hours) Vital Signs Temp Pulse Resp BP Pulse Ox 12/24/19 11:40 36.6 C 64 18 154/97 H 97 12/24/19 07:49 36.5 C 60 19 165/98 H 98 12/24/19 03:49 36.5 C 61 17 142/86 H 96 Laboratory Results Laboratory Results - last 24 hr 12/23/19 12/23/19 12/23/19 17:07 17:07 17:07 WBC 5.21 RBC 4.87 Hgb 14.7 Hct 42.7 MCV 87.7 MCH 30.2 MCHC 34.4 RDW Std Deviation 38.8 RDW Coeff of Brennon 12.2 Plt Count 284 MPV 9.8 Immature Gran % (Auto) 0.2 Neut % (Auto) 49.7 Lymph % (Auto) 35.3 [place] % (Auto) 12.1 Eos % (Auto) 2.1 Baso % (Auto) 0.6 Neut # (Auto) 2.59 Lymph # (Auto) 1.84 [place] # (Auto) 0.63 H Eos # (Auto) 0.11 Baso # (Auto) 0.03 Immature Gran # (Auto) 0.01 PT 10.8 INR 1.0 APTT 29.3 PTT Ratio 1.1 D-Dimer Sodium 140 Potassium 3.2 L Chloride 103 Carbon Dioxide 32 Anion Gap 5.0 BUN 14 Creatinine 1.13 Est Cr Clr Drug Dosing 72.3 Est GFR ( Amer) 86.7 Est GFR (Non-Af Amer) 74.8 BUN/Creatinine Ratio 12.0 Glucose 130 H Estimat Average Glucose Hemoglobin A1c Calcium 8.9 Magnesium 2.3 Total Bilirubin 0.3 AST 20 ALT 39 Alkaline Phosphatase 82 Troponin I < 0.015 Total Protein 7.6 Albumin 4.2 Globulin 3.4 Albumin/Globulin Ratio 1.2 Lipase 346 12/23/19 12/23/19 12/23/19 17:07 17:07 22:55 WBC RBC Hgb Hct MCV MCH MCHC RDW Std Deviation RDW Coeff of Brennon Plt Count MPV Immature Gran % (Auto) Neut % (Auto) Lymph % (Auto) [place] % (Auto) Eos % (Auto) Baso % (Auto) Neut # (Auto) Lymph # (Auto) [place] # (Auto) Eos # (Auto) Baso # (Auto) Immature Gran # (Auto) PT INR APTT PTT Ratio D-Dimer 210 Sodium Potassium Chloride Carbon Dioxide Anion Gap BUN Creatinine Est Cr Clr Drug Dosing Est GFR ( Amer) Est GFR (Non-Af Amer) BUN/Creatinine Ratio Glucose Estimat Average Glucose Pending Hemoglobin A1c Pending Calcium Magnesium Total Bilirubin AST ALT Alkaline Phosphatase Troponin I < 0.015 Total Protein Albumin Globulin Albumin/Globulin Ratio Lipase 12/24/19 12/24/19 06:50 06:50 WBC 6.03 RBC 4.46 L Hgb 13.4 L Hct 39.2 L MCV 87.9 MCH 30.0 MCHC 34.2 RDW Std Deviation 39.5 RDW Coeff of Brennon 12.3 Plt Count 261 MPV 9.5 Immature Gran % (Auto) 0.0 Neut % (Auto) 56.6 Lymph % (Auto) 30.8 [place] % (Auto) 10.4 Eos % (Auto) 1.7 Baso % (Auto) 0.5 Neut # (Auto) 3.41 Lymph # (Auto) 1.86 [place] # (Auto) 0.63 H Eos # (Auto) 0.10 Baso # (Auto) 0.03 Immature Gran # (Auto) 0.00 PT INR APTT PTT Ratio D-Dimer Sodium 141 Potassium 3.2 L Chloride 108 H Carbon Dioxide 30 Anion Gap 3.0 BUN 11 Creatinine 0.90 Est Cr Clr Drug Dosing 98.4 Est GFR ( Amer) 114.2 Est GFR (Non-Af Amer) 98.5 BUN/Creatinine Ratio 11.7 Glucose 95 Estimat Average Glucose Hemoglobin A1c Calcium 8.1 L Magnesium Total Bilirubin AST ALT Alkaline Phosphatase Troponin I < 0.015 Total Protein Albumin Globulin Albumin/Globulin Ratio Lipase (1) Chest pain Chest pain type: unspecified Qualified Code(s): R07.9 - Chest pain, unspecified
--- NOTE | 2019-12-24 14:13 | Discharge Summary ---
Date of Service December 24, 2019 Admission HPI Per Admitting Provider History obtained from patient and records. Medical history significant for hypertension, hypothyroidism, anxiety disorder, IBS as per records. 3 weeks history of bloating symptoms, right upper quadrant discomfort with loose stools similar to previous IBS episodes as per patient account. Patient seen at PCPs office. Blood pressure noted to be 140s. Home diuretic increase in dose. Abdominal pain, loose stools attributed to possible IBS. Bentyl as needed prescribed. Patient verbalized wanting to look into medical marijuana. Persistent GI symptoms despite discomfort. No fever, no chills. Outpatient right upper quadrant ultrasound recommended to rule out gallbladder disease. Consideration for GI consult if without improvement. Patient was playing video games this afternoon when he experienced substernal h eaviness without radiation without other associated symptoms. Patient having separate right upper quadrant discomfort at time of chest heaviness. Chest heaviness relieved with nitroglycerin administration at the ER. Some headache post nitro administration. Medical History as above Surgical History : Family History : Personal/Social history : Admission Exam Per Admitting Provider GENERAL: He is oriented to person, place, and time. He appears well-developed and well-nourished. He does not appear distressed. HENT: Exam performed. - Head: Normocephalic and atraumatic. - Right Ear: External ear normal. No mastoid tenderness. - Left Ear: External ear normal. No mastoid tenderness. - Mouth/Throat: The oropharynx is clear and moist. No trismus in the jaw. No dental abscesses or uvula swelling. No oropharyngeal exudate or tonsillar abscesses. EYES: Conjunctivae and EOM are normal. Pupils are equal, round, and reactive to light. Right eye exhibits no discharge. Left eye exhibits no discharge. No scleral icterus. NECK: Normal range of motion. Neck supple. No JVD present. No spinous process tenderness present. No carotid bruit present. No rigidity. No tracheal deviation and normal range of motion present. No Brudzinski's sign and no Kernig's sign noted. CV: Normal rate, regular rhythm, normal heart sounds and intact distal pulses. There is no peripheral edema. Palpable radial pulses bue. PULM/CHEST: Effort normal and breath sounds normal. No respiratory distress. No stridor. He has no wheezes. He has no rales. - Chest Wall: He exhibits no tenderness. ABD: The abdomen is soft. Bowel sounds are normal. He has no distension. No mass is present. There is no tenderness. There is no rebound, no guarding, no Townsend's sign and no tenderness at McBurney's point. Rovsig negative. MUSC/SKEL: Normal range of motion. There is no peripheral edema, tenderness or deformity. LYMPH: No cervical adenopathy. NEURO: He is alert and oriented to person, place, and time. He has normal strength. No cranial nerve deficit or sensory deficit. Coordination and gait normal. GCS eye subscore is 4. GCS verbal subscore is 5. GCS motor subscore is 6. Cerebellar tests wnl. SKIN: Skin is warm and dry. He is not diaphoretic. PSYCH: He has a normal mood and affect. Behavior is normal. Judgment and thought content normal. Principal Diagnosis ATYPICAL CHEST PAIN, ACUTE CORONARY SYNDROME RULED OUT; HYPERTENSION Discharge Exam General- oriented x 3, not in distress, speaks in sentences with no effort or accessory muscle use Head- atraumatic Eyes- PERRL, EOMI, anicteric ENT- oropharynx clear Neck- supple, no JVD, no adenopathy, no thyromegaly; carotids +2/2, no bruits appreciated Lungs- clear to auscultation bilaterally, no rales/wheezes Heart- normal rate, regular rhythm; no murmur, no gallop, no rub appreciated Abdomen- normal bowel sounds, nondistended, soft, MILD right sided tenderness, no masses or hepatosplenomegaly Extremities- no pretibial edema, no calf tenderness; peripheral pulses intact Neuro- alert, oriented x 3; CN 2-12 grossly intact; motor 5/5 bilaterally;sensation 100% on all extremities; no other gross focal neurologic deficits Skin- warm & dry Discharge Data Allergies Allergy/AdvReac Type Severity Reaction Status Date / Time No Known Allergies Allergy Unknown Unverified 12/23/19 18:31 Consultations 12/23/19 19:25 ED Decision to Admit Stat 12/23/19 21:08 Consult Cardiology Routine Ordered Studies 12/23/19 17:48 US gallbladder Stat FINDINGS: Pancreas appears sonographically normal. The liver appears sonographically normal. The gallbladder appears sonographically normal. There is no ductal dilatation. The common bile duct measures 3 mm. There is no right-sided hydronephrosis. IMPRESSION: Normal biliary ultrasound. 12/23/19 20:13 CT abd pelvis IV con only Urgent Lower chest: There are mild dependent atelectatic changes. Liver: There is a 1 cm left lobe hypodensity, likely representing a cyst. Gallbladder: Unremarkable. Spleen: Normal in size and attenuation. Pancreas: Unremarkable. Adrenal glands: Unremarkable. Kidneys: There is symmetric renal cortical enhancement. The kidneys are normal in size without hydronephrosis. Bowel: There are no transition zones indicate bowel obstruction. There is no evidence of acute diverticulitis. The appendix appears normal. Peritoneum: There is no intraperitoneal free air or abdominal ascites. Vasculature: The abdominal aorta is normal in course and caliber. Adenopathy: None. Pelvic viscera: There is mild bladder wall thickening which may be secondary to nondistention. Skeletal structures: No destructive osseous lesions are seen. IMPRESSION: 1. No evidence of bowel obstruction. No evidence of free air 2. Normal appendix 3. No evidence of acute diverticulitis 4. Bladder wall thickening, a finding which may be secondary to a nondistended bladder. Hospital Course (1) Chest pain: Chest Pain Possibly from uncontrolled blood pressure from IBS/anxiety symptoms Acute coronary syndrome ruled out Troponins x3 negative EKG no signs of acute ischemia or infarct Echocardiogram no wall motion abnormality, ejection fraction 65 to 70% Printed Forms Proofreader Dr. Quach consulted, recommend outpatient stress test to be arranged by his office - Carvedilol 6.125 mg p.o. twice daily added for blood pressure control Aspirin 81 mg p.o. daily started - Follow-up with primary care physician this coming week Outpatient stress test per lead teller Dr. Quach Irritable Bowel Syndrome right sided abdominal pain improved with Bentyl advised to take Bentyl QID PRN outpatient GI evaluation Hypothyroidism, euthyroid Hypokalemia secondary diuretic Rx Mg normal Add potassium 40 M EQ's daily Check potassium level during follow-up visit with PCP Hyperglycemia random BSG 130 A1c pending Please follow-up Disposition Discharge home Follow-up with PCP next week, clinic will call patient Outpatient stress test Total Time Total Time Spent Total Time Spent (In Minutes): 50 minutes Discharge Plan Discharge Items Patient Disposition: Home - Self-Care Reason For Visit: CHEST PAIN Discharge Diagnosis: CHEST PAIN, ELEVATED BLOOD PRESSURE Activity: As commented below Activity Comment: Resume activity gradually as tolerated, no heavy exertion until follow-up w Lifting: Wait until after follow-up appointment Exercise/Sports: Wait until after follow-up appointment Driving/Machine Use: No driving until follow-up with primary care physician Non-emergency contact: Primary Care Provider Call non-emergency contact if: you have any medication questions, your symptoms worsen, your pain is not controlled, your pain is worsening, your pain is unusual for you, your pain is concerning for you and you have a fever Follow-up/Referrals: Kiran Duarte MD [Primary Care Provider] - Diet: Heart Healthy Addtl Attending Provider Instructions: Please review your new medication list and follow instructions carefully. Your new medications include: Carvedilol-for blood pressure control Aspirin-for heart attack prevention Potassium supplement-to replace potassium Please follow-up with your primary care physician within 1 week. The clinic will be calling you soon for the appointment schedule. You will also need a stress test as an outpatient. The [facility] cardiology clinic will be contacting you for the schedule as well. Follow-up with Gastroenterology clinic. Follow-up with your primary care physician or return to the ER immediately if with worsening of symptoms. Pending Studies at Discharge: Yes Studies:: Repeat potassium level on follow-up with your primary care physician this coming week; outpatient stress test Stand-Alone Forms: My [facility] [employer], Smoking Cessation Medications and DC Order Prescriptions: New carvedilol 6.25 mg Tablet 6.25 mg PO BID Qty: 60 RF: 2 aspirin 81 mg Tablet,Delayed Release (Dr/Ec) 81 mg PO QAM Qty: 30 RF: 2 dicyclomine 20 mg Tablet 20 mg PO QID PRN (Reason: abdominal pain) Qty: 20 RF: 0 potassium chloride 20 mEq tablet extended release 40 meq PO DAILY Qty: 60 RF: 0 Continued venlafaxine 75 mg capsule,extended release 24hr 75 mg PO PM RF: 0 hydrochlorothiazide 25 mg tablet 25 mg PO QAM RF: 0 multivitamin Tablet 1 tab PO QAM RF: 0 levothyroxine 50 mcg tablet 50 mcg PO QAM RF: 0 losartan 100 mg tablet 100 mg PO QAM RF: 0 Discharge Orders: Discharge Order (Routine); Ordered 12/24/19 Ordered By: Ronald Martínez Admission Data Admit Date/Time: 12/23/19 20:17 Attending Provider: Ronald Martínez Admit Provider: Wolf Becker Primary Care Provider: Kiran Duarte Other Providers: Wolf Becker ; Anson Diaz ; Eleno Murray ; Nayan Gibson ; Ronal Jackson ; Zacarias Quach ; Driss Maciel ; Maris Blandon ; Alexus Gonzalez ; Charbel Berry
[2019-12-25 06:13] LABS: Estimated Average Glucose 111 mg/dl; Hemoglobin A1C 5.5 % (4.5-5.6)
== END 2019-12-24 15:29 | disposition home or self-care (01) ==
LOC: 2E 16:38 → ED 16:38 → SUATTDRO 20:17 → 2E 20:44